=== PATIENT | female | born 1995 ===

== ENCOUNTER → 2023-03-26 02:32 | Outpatient (CLI) | payer MEDICAID, SELFPAY ==
--- NOTE | 2023-03-26 | DI.US_ITS ---
Exam(s) US AXILLA RT EXAM: US AXILLA RT CLINICAL HISTORY: MASS RT AXILLA,R22.2,GROWN IN SIZE,TENDER TO PALPATION TECHNIQUE: Ultrasound right axilla performed using standard protocol. COMPARISON: No exams were available for comparison FINDINGS: In the right axilla, corresponding to the palpable area where abnormality discoloration, there is a 1 .8 x 0.3 x 1.1 centimeter area of edema in the subcutaneous fat. No associated vascularity. No feat ures to suggest suspicious mass. IMPRESSION: No sonographically suspicious finding. DATA REPOSITORY:
== END ==
PROVIDERS: PCP Naturopath; Visit Provider Naturopath
DX: R22.2 Localized swelling, mass and lump, trunk (principal)
CPT/HCPCS: 76642

== ENCOUNTER 2023-04-10 01:06 | Outpatient (CLI) | payer MEDICAID, SELFPAY ==
[2023-04-10 15:01] LABS: Abs Immature Grans 0.02 10^3/uL (0.0-0.06); Absolute Basophil Count 0.04 10^3/uL (0.0-0.2); Absolute Eosinophil Count 0.32 10^3/uL (0.0-0.7); Absolute Lymphocyte Count 1.38 10^3/uL (1.2-3.4); Absolute Monocyte Count 0.44 10^3/uL (0.1-0.8); Absolute Neutrophil Count 3.78 10^3/uL (1.2-6.7); Basophils % 0.7; Eosinophils % 5.4; HCT 39.9 % (36.0-46.0); HGB 12.8 g/dL (11.2-15.7); Immature Grans % 0.3; Lymphocytes % 23.1; MCH 28.4 pg (27.0-33.0); MCHC 32.1 % (32.0-36.0); MCV 89 fL (80-95); MPV 11.1 fL (8.0-11.0); Monocytes % 7.4; Neutrophils % 63.1; Platelet Count 243 10^3/uL (130-400); RDW-SD 39.2 fL; WBC 5.98 10^3/uL (4.4-10.8)
[2023-04-10 15:56] LABS: ALT 33 U/L (14-59); AST 15 U/L (15-37); Albumin 4.1 g/dL (3.4-5.0); Alkaline Phosphatase 61 U/L (46-116); Anion Gap 10.2 mmol/L (3-11); BUN 14 mg/dL (7-18); Bilirubin, Total 0.6 mg/dL (0.2-1.0); CO2 28.8 mmol/L (21.0-32.0); CREATININE 0.9 mg/dL (0.55-1.02); Calcium 9.1 mg/dL (8.5-10.1); Calculated LDL 97 mg/dL (<100); Chloride 104 mmol/L (98-107); Cholesterol 200 mg/dL (<200); Estimated GFR 88.75 (mL/min/1.73m2); Glucose 69 mg/dL (74-106); HDL Cholesterol 91 mg/dL (40-60); Potassium 3.6 mmol/L (3.5-5.1); Sodium 143 mmol/L (136-145); TSH 1.43 uIU/mL (0.36-3.74); Total Protein 7.1 g/dL (6.4-8.2); Triglyceride 63 mg/dL (<150)
[2023-04-10 16:09] LABS: Vitamin D 25 Total 20.5 ng/mL (30-100)
== END 2023-04-10 01:07 | disposition home or self-care (01) ==
LOC: LBO 01:06
PROVIDERS: PCP Naturopath; Visit Provider Naturopath
DX: Z00.00 Encounter for general adult medical examination without abnormal findings (principal)
CPT/HCPCS: 36415; 80053; 80061; 82306; 83036; 84443; 85025